=== PATIENT | male | born 1980 | race Caucasian/White ===

== ENCOUNTER 2017-07-13 13:08 | Inpatient (IN) | payer BC, OTHER ==
[2017-07-13] MEDS ORDERED: Clindamycin Phosphate in D5W 300 MG in Premix Bag 1 BAG IV ONE ×2 (14:05)
[2017-07-13] MEDS ORDERED: Sodium Chloride 0.9% 1,000 ML IV ONE (14:05)
[2017-07-13] MEDS ORDERED: Ondansetron 4 MG/2 ML SDV IVPUSH ONE (14:06)
--- NOTE | 2017-07-13 14:12 | EDM.PDOC ---
ED HPI GENERAL MEDICAL PROBLEM - General Chief Complaint: Lower Extremity Injury/Pain Stated Complaint: FOOT HURTS Time Seen by Provider: 07/13/17 13:09 Source of Information: Reports: Patient History Limitations: Reports: No Limitations - History of Present Illness INITIAL COMMENTS - FREE TEXT/NARRATIVE: HISTORY AND PHYSICAL: History of present illness: Patient is a 36-year-old male who presents to the emergency room today with complaints of left foot pain. States approximately 10 days ago he had a heavy pallet fall down his beyer landing on his left great toe. Since that time he has had a blister like sore to the toe which since has come more erythematous going up the foot, ankle and into the distal tib-fib area. The right great toe has yellow and green exudate from the site. Patient denies any fever or chills. Is ambulatory although causing pain when weightbearing. Review of systems: As per history of present illness and below otherwise all systems reviewed and negative. Past medical history: As per history of present illness and as reviewed below otherwise noncontributory. Surgical history: As per history of present illness and as reviewed below otherwise noncontributory. Social history: No reported history of drug or alcohol abuse. Family history: As per history of present illness and as reviewed below otherwise noncontributory. Physical exam: Gen.: Well-developed and well-nourished 36-year-old male. Able to speak in full sentences without shortness of breath. Alert and oriented. HEENT: Atraumatic, normocephalic, pupils reactive, negative for conjunctival pallor or scleral icterus, mucous membranes moist, throat clear, neck supple, nontender, trachea midline. Lungs: Clear to auscultation, breath sounds equal bilaterally, chest nontender. Heart: S1S2, regular, negative for clicks, rubs, or JVD. Abdomen: Soft, nondistended, nontender. Negative for masses or hepatosplenomegaly. Negative for costovertebral tenderness. Pelvis: Stable nontender. Genitourinary: Deferred. Rectal: Deferred. Extremities: Patient had a wooden pallet fall down the left beyer landing on the left great toe him a abrasion noted to left beyer with healing bruising. T erythema noted to the left distal tib-fib going into the ankle and foot. A large open sore is noted to the left great toe, macerated with yellow/green exudate. Foul odor is noted. Neurovascular unremarkable. Neuro: Awake, alert, oriented. Cranial nerves II through XII unremarkable. Cerebellum unremarkable. Motor and sensory unremarkable throughout. Exam nonfocal. Case was discussed with Dr. crowell and he is agreeable to admit this patient for inpatient antibiotics. Patient is aware and agreeable to plan of care. Denies any further questions at this time. Diagnostics: CBC, CMP, lactic acid, blood cultures 2, x-ray, Therapeutics: Vancomycin, Cleocin, Zofran, IV fluid, dilaudid Impression: Cellulitis Plan: Inpatient admission for cellulitis Definitive disposition and diagnosis as appropriate pending reevaluation and review of above. Duration: Day(s): (x 10 days) left foot Pain Score (Numeric/FACES): 4 - Related Data Allergies Allergy/AdvReac Type Severity Reaction Status Date / Time No Known Allergies Allergy Verified 07/13/17 13:10 Home Meds: Home Meds . [No Known Home Meds] 02/28/15 [History] Past Medical History - Past Health History Medical/Surgical History: Denies Medical/Surgical History Cardiovascular History: Reports: Hypertension Other Gastrointestinal History: inguinal and abdominal hernia - Past Surgical History GI Surgical History: Reports: Hernia, Abdominal, Hernia, Inguinal Social & Family History - Family History Family Medical History: Noncontributory - Tobacco Use Smoking Status *Q: Never Smoker - Recreational Drug Use Recreational Drug Use: No Review of Systems - Review of Systems Review Of Systems: ROS reveals no pertinent complaints other than HPI. ED EXAM, GENERAL - Physical Exam Exam: See Below (See dictation) Course - Vital Signs Last Recorded V/S: Last Vital Signs Temp 36.1 C 07/13/17 13:08 Pulse 99 07/13/17 13:08 Resp 18 07/13/17 13:08 BP 174/102 H 07/13/17 13:08 Pulse Ox 96 07/13/17 13:08 - Orders/Labs/Meds Orders: Active Orders 24 hr Category Date Time Status Foot 2V Lt [CR] Stat Exams 07/13/17 13:50 Taken CULTURE BLOOD [BC] Stat Lab 07/13/17 14:13 Received CULTURE BLOOD [BC] Stat Lab 07/13/17 14:24 Received Blood Culture x2 Reflex Set [OM.PC] Stat Oth 07/13/17 14:05 Ordered Labs: Laboratory Tests 07/13/17 07/13/17 07/13/17 Range/Units 14:13 14:13 14:13 WBC 10.76 (4.0-11.0) K/uL RBC 4.80 (4.50-5.90) M/uL Hgb 15.2 (13.0-17.0) g/dL Hct 43.0 (38.0-50.0) % MCV 89.6 (80.0-98.0) fL MCH 31.7 (27.0-32.0) pg MCHC 35.3 (31.0-37.0) g/dL RDW Std Deviation 37.0 (28.0-62.0) fl RDW Coeff of Minh 12 (11.0-15.0) % Plt Count 274 (150-400) K/uL MPV 10.00 (7.40-12.00) fL Add Manual Diff YES Neutrophils % (Manual) 74 (48.0-80.0) % Band Neutrophils % 6 % Lymphocytes % (Manual) 13 L (16.0-40.0) % Monocytes % (Manual) 5 (0.0-15.0) % Basophils % (Manual) 1 (0.0-1.5) % Metamyelocytes % 1 % Absolute Seg Neuts 8.0 H (1.4-5.7) Band Neutrophils # 0.6 Lymphocytes # (Manual) 1.4 (0.6-2.4) Monocytes # (Manual) 0.5 (0.0-0.8) Eosinophils # (Manual) 0.1 (0.0-0.7) Basophils # (Manual) 0.1 (0.0-0.1) Absolute Metamyelocyte 0.1 Lactate 2.3 H (0.20-2.00) mmol/L Sodium 130 L (136-146) mmol/L Potassium 4.3 (3.5-5.1) mmol/L Chloride 96 L (98-110) mmol/L Carbon Dioxide 16 L (21-31) mmol/L BUN 13 (6.0-23.0) mg/dL Creatinine 0.8 (0.6-1.5) mg/dL Est Cr Clr Drug Dosing TNP Estimated GFR (MDRD) > 60.0 ml/min Glucose 360 H (60-110) mg/dL Calcium 9.7 (8.8-10.8) mg/dL Total Bilirubin 0.7 (0.1-1.5) mg/dL AST 27 (5-40) IU/L ALT 26 (8-54) IU/L Alkaline Phosphatase 142 (40-150) Total Protein 8.4 H (6.0-8.0) g/dL Albumin 3.7 (3.5-5.0) g/dL Globulin 4.7 H (2.0-3.5) g/dL Albumin/Globulin Ratio 0.8 L (1.3-2.8) Meds: Medications Discontinued Medications Generic Name Dose Route Start Last Admin Trade Name Freq PRN Reason Stop Dose Admin Hydromorphone HCl 0.5 mg 07/13/17 14:13 07/13/17 14:41 Dilaudid IM 07/13/17 14:14 0.5 mg ONETIME ONE Administration Clindamycin Phosphate 300 mg/ 50 mls @ 150 mls/hr 07/13/17 14:05 07/13/17 14: 42 Premix IV 07/13/17 14:24 150 mls/hr ONETIME ONE Administration Sodium Chloride 1,000 mls @ 999 mls/hr 07/13/17 14:05 07/13/17 14:45 Normal Saline IV 07/13/17 15:05 999 mls/hr STAT ONE Administration Vancomycin HCl 1 gm/ Sodium 250 mls @ 250 mls/hr 07/13/17 14:05 07/13/17 15: 14 Chloride IV 07/13/17 15:04 250 mls/hr ONETIME ONE Administration Ondansetron HCl 4 mg 07/13/17 14:06 07/13/17 14:42 Zofran IVPUSH 07/13/17 14:07 4 mg ONETIME ONE Administration Departure - Departure Time of Disposition: 16:12 Disposition: Admitted As Inpatient 64 Clinical Impression: Cellulitis Qualifiers: Site of cellulitis: extremity Site of cellulitis of extremity: lower extremity Laterality: left Qualified Code(s): L03.116 - Cellulitis of left lower limb - Discharge Information - My Orders Last 24 Hours: My Active Orders 07/13/17 13:50 Foot 2V Lt [CR] Stat 07/13/17 14:05 Blood Culture x2 Reflex Set [OM.PC] Stat 07/13/17 14:13 CULTURE BLOOD [BC] Stat 07/13/17 14:24 CULTURE BLOOD [BC] Stat - Assessment/Plan Last 24 Hours: My Active Orders 07/13/17 13:50 Foot 2V Lt [CR] Stat 07/13/17 14:05 Blood Culture x2 Reflex Set [OM.PC] Stat 07/13/17 14:13 CULTURE BLOOD [BC] Stat 07/13/17 14:24 CULTURE BLOOD [BC] Stat
[2017-07-13] MEDS ORDERED: HYDROmorphone 1 MG/ML Syringe IM ONE (14:13)
[2017-07-13 14:43] LABS: CHLORIDE,CL 96 mmol/L (98-110); SODIUM,NA 130 mmol/L (136-146)
[2017-07-13] MEDS ORDERED: cefTRIAXone 2 GM in Premix Bag 1 BAG IV SCH (17:00)
[2017-07-13] MEDS ORDERED: Acetaminophen 325 MG Tab PO PRN (17:05)
[2017-07-13] MEDS ORDERED: Morphine 2 MG/ML Syringe IVPUSH PRN (17:05)
[2017-07-13] MEDS ORDERED: oxyCODONE 5 MG Tab PO PRN (17:05)
[2017-07-13] MEDS ORDERED: Ondansetron 4 MG/2 ML SDV IVPUSH PRN (17:05)
--- NOTE | 2017-07-13 17:31 | PCM.HP ---
H&P History of Present Illness - General Date of Service: 07/13/17 Admit Problem/Dx: Admission Diagnosis/Problem Admission Diagnosis/Problem Cellulitis - History of Present Illness Initial Comments - Free Text/Narative: 36 yo male admitted with left great toe wound and left foot cellulitis. Patient states he was at work 10 days ago removing some heavy objects from the back of his truck. One of the objects fell, hit his left beyer and landed on his left foot. He has some pain and small amount of swelling initially that then began to improve. Then about 5 days ago his pain and swelling then worsened. He developed a large wound on his left great toe that began to bleed and drain pus. He has been applying triple antibioitic and trying to elevate it but it continued to worsen until he presented to ED today. He denies any fever, chills , night sweats, weakness or altered mental status. He states his pain is currently 2/10 however he did receive Dilaudid 2 mg IV in the ED. He states he has no pmh but admits to not seeing in a doctor for longer than he can remember. In the ED he was noted to have blood pressure 174/102, blood glucose 360, Na 130 & Lactate of 2.3. He had XR which was negative for acute fracture. Blood cultures were obtained. He was given IV NS 1L bolus and single doses of Vancomycin 1 gm IV & Clindamycin 300 mg IV. Upon Admission to floor, wound cultures were obtained and was given single dose of Ceftriaxone 2 gm IV. His HbA1C was obtained which was found to be 11.1%. His left toe was noted to have abscess formation with active drainage. Due to no availability of Orthopedic Surgery or MRI, [facility] was contacted. I spoke with Dr. Jean who accept the patient and transferred me to to the ED where I spoke to Dr. Faria who had accepted the patient on behalf of him. left foot Pain Score (Numeric/FACES): 4 - Related Data Allergies/Adverse Reactions: Allergies Allergy/AdvReac Type Severity Reaction Status Date / Time No Known Allergies Allergy Verified 07/13/17 13:10 Home Medications: Home Meds . [No Known Home Meds] 02/28/15 [History] Past Medical History - Past Health History Medical/Surgical History: Denies Medical/Surgical History Cardiovascular History: Reports: Hypertension Other Gastrointestinal History: inguinal and abdominal hernia - Past Surgical History GI Surgical History: Reports: Hernia, Abdominal, Hernia, Inguinal Social & Family History - Family History Family Medical History: Noncontributory - Tobacco Use Smoking Status *Q: Never Smoker Second Hand Smoke Exposure: No - Caffeine Use Caffeine Use: Reports: Energy Drinks - Recreational Drug Use Recreational Drug Use: No H&P Review of Systems - Review of Systems: Review Of Systems: See Below General: Reports: No Symptoms HEENT: Reports: No Symptoms Pulmonary: Reports: No Symptoms Cardiovascular: Reports: No Symptoms Gastrointestinal: Reports: No Symptoms Genitourinary: Reports: No Symptoms Musculoskeletal: Reports: Foot Pain Skin: Reports: Wound Psychiatric: Reports: No Symptoms Neurological: Reports: No Symptoms Hematologic/Lymphatic: Reports: No Symptoms Immunologic: Reports: No Symptoms Exam - Exam Exam: See Below - Vital Signs Vital Signs: Last Vital Signs Temp 36.8 C 07/13/17 15:33 Pulse 95 07/13/17 15:33 Resp 18 07/13/17 15:33 BP 162/99 H 07/13/17 15:33 Pulse Ox 96 07/13/17 15:33 Weight: 107.3 kg - Exam General: Alert, Oriented, Cooperative, Mild Distress HEENT: Conjunctiva Clear, Mucosa Moist & [place] Neck: Supple, Trachea Midline Lungs: Clear to Auscultation, Normal Respiratory Effort Cardiovascular: Regular Rate, Regular Rhythm GI/Abdominal Exam: Soft, Non-Tender Back Exam: Normal Inspection Extremities: Other (Left Toe: Large wound extending into dorsum of foot, entire wound is draining yellow-green. There is overlying redness and swelling invovling all toes and extending up into left ankle. weak ) Peripheral Pulses: 1+: Dorsalis Pedis (L), 2+: Dorsalis Pedis (R) Neurological: Cranial Nerves Intact - Patient Data Result Diagrams: 07/13/17 14:13 07/13/17 14:13 *Q Meaningful Use (ADM) - VTE *Q VTE Criteria *Q: - Stroke *Q Stroke Criteria *Q: - AMI *Q AMI Criteria *Q: Problem List Initiated/Reviewed/Updated: Yes Orders Last 24hrs: Active Orders 24 hr Category Date Time Status Patient Status [ADT] Routine ADT 07/13/17 17:05 Ordered Bedrest Bathroom Privileges [RC] ASDIRECTED Care 07/13/17 17:05 Ordered Blood Glucose Check, Bedside [RC] TIDMEALS Care 07/13/17 17:05 Ordered Intake and Output [RC] QSHIFT Care 07/13/17 17:09 Ordered Oxygen Therapy [RC] PRN Care 07/13/17 17:05 Ordered Oxygen Therapy [RC] PRN Care 07/13/17 17:14 Ordered VTE/DVT Education [RC] PER UNIT ROUTINE Care 07/13/17 17:05 Ordered VTE/DVT Education [RC] PER UNIT ROUTINE Care 07/13/17 17:14 Ordered Vital Signs [RC] Q4H Care 07/13/17 17:05 Ordered Vital Signs [RC] Q4H Care 07/13/17 17:14 Ordered ADA Diabetic [[place] [employer] Diet] [DIET Diet 07/14/17 Breakfast Active ] Foot wo Cont Lt [MR] Routine Exams 07/13/17 17:14 Ordered BASIC METABOLIC PANEL,BMP [CHEM] AM Lab 07/14/17 05:11 Ordered BASIC METABOLIC PANEL,BMP [CHEM] AM Lab 07/15/17 05:11 Ordered BASIC METABOLIC PANEL,BMP [CHEM] AM Lab 07/16/17 05:11 Ordered BASIC METABOLIC PANEL,BMP [CHEM] AM Lab 07/17/17 05:11 Ordered BASIC METABOLIC PANEL,BMP [CHEM] AM Lab 07/18/17 05:11 Ordered CBC WITH AUTO DIFF [HEME] AM Lab 07/14/17 05:11 Ordered CBC WITH AUTO DIFF [HEME] AM Lab 07/15/17 05:11 Ordered CBC WITH AUTO DIFF [HEME] AM Lab 07/16/17 05:11 Ordered CBC WITH AUTO DIFF [HEME] AM Lab 07/17/17 05:11 Ordered CBC WITH AUTO DIFF [HEME] AM Lab 07/18/17 05:11 Ordered CULTURE WOUND [RM] Routine Lab 07/13/17 17:14 Uncollected GLYCOSYLATED HEMOGLOBIN,HGBA1C [CHEM] Routine Lab 07/13/17 17:14 Ordered Acetaminophen [Tylenol] Med 07/13/17 17:05 Ordered 650 mg PO Q4H PRN Enoxaparin [Lovenox] Med 07/14/17 09:00 Ordered 40 mg SUBCUT DAILY Morphine Med 07/13/17 17:05 Ordered 2 mg IVPUSH Q2H PRN Ondansetron [Zofran] Med 07/13/17 17:05 Ordered 4 mg IVPUSH Q4H PRN cefTRIAXone [Rocephin in Dextrose,Iso-Osm 2 GM/50 ML] 2 Med 07/13/17 17:15 Ordered gm Premix Bag 1 bag IV Q24H oxyCODONE Med 07/13/17 17:05 Ordered 5 mg PO Q4H PRN Resuscitation Status Routine Resus Stat 07/13/17 17:05 Ordered Medication Orders Acetaminophen (Tylenol) 650 mg PO Q4H PRN PRN Reason: Pain (Mild 1-3)/fever Enoxaparin Sodium (Lovenox) 40 mg SUBCUT DAILY NACHO Ceftriaxone Sodium/Dextrose 2 (gm/ Premix) 50 mls @ 100 mls/hr IV Q24H NACHO Morphine Sulfate (Morphine) 2 mg IVPUSH Q2H PRN PRN Reason: Pain (severe 7-10) Stop: 07/14/17 17:10 Ondansetron HCl (Zofran) 4 mg IVPUSH Q4H PRN PRN Reason: nausea Oxycodone HCl (Oxycodone) 5 mg PO Q4H PRN PRN Reason: Pain (moderate 4-6) Assessment/Plan Comment:: Assessment: 1. Left Great Toe Wound 2. Left Foot Cellulitis 3. Elevated BP without diagnosis of HTN 4. Uncontrolled DM, newly diagnosed 5. Hyperglycemia 6. Pseudohyponatremia, likely secondary to #5 7. Elevated Lactate Plan: In the ED he was noted to have blood pressure 174/102, blood glucose 360, Na 130 & Lactate of 2.3. He had XR which was negative for acute fracture. Blood cultures were obtained. He was given IV NS 1L bolus and single doses of Vancomycin 1 gm IV & Clindamycin 300 mg IV. Upon Admission to floor, his left toe was noted to have abscess formation with active drainage. Wound cultures were obtained and was given single dose of Ceftriaxone 2 gm IV. His HbA1C was obtained which was found to be 11.1%. He was sitting comfortable with pain level 2/10. Other than HTN his vitals were stable. Due to no availability of Orthopedic Surgery or MRI, [facility] was contacted. I spoke with Dr. Jean who accept transfer and connected me with the ED where I spoke to Dr. Faria who had accepted the patient on behalf of him. Patient will be discharged via ambulance on IV NS @ 100 ml/hour.
[2017-07-13] MEDS ORDERED: Sodium Chloride 0.9% 1,000 ML IV SCH (18:15)
[2017-07-13 18:47] VITALS: BP 186/104
[2017-07-14] MEDS ORDERED: Enoxaparin 40 MG/0.4 ML Syringe SUBCUT SCH (09:00)
--- NOTE | 2017-07-15 11:17 | CR ---
EXAM DATE: 07/13/17 PATIENT'S AGE: 36 Patient: SHERIE ARMAS Facility: [place], [place] Site . Site : 1980 Study: XRay Extremity Left foot [id number] 2:08:42 PM Ordering Physician: Doctor Oliver Final Report: Pain 2 views of the left foot. Findings: Normal alignment. No acute fractures. Diffuse soft tissue swelling. Calcaneal spur. Impression: 1. Soft tissue swelling. No acute fractures. Dictated by Linda Iniguez MD @ Jul 13 2017 2:52PM (Electronic Signature) Report Signed by Proxy. HARVINDER
== END 2017-07-13 18:20 | DRG 603 ==
LOC: MW.ED 13:08 → EEVIPCON 15:16 → MW.MS 15:16
PROVIDERS: ADMIT Family Medicine; ATTEND Family Medicine
DX: L03.116 Cellulitis of left lower limb (principal); L02.612 Cutaneous abscess of left foot; W20.8XXD Other cause of strike by thrown, projected or falling object, subsequent encounter; R03.0 Elevated blood-pressure reading, without diagnosis of hypertension; E11.65 Type 2 diabetes mellitus with hyperglycemia
CPT/HCPCS: 36415; 73620-26-LT; 73620-LT; 80053; 82962; 83036; 83605; 85025; 87040; 87070; 87077; 87186; 96365; 96367; 96375; 99283; 99284-25; J0696; J1170; J2405; J3370; J7040; J7050